=== PATIENT | female | born 2000 | race Caucasian/White ===

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

== ENCOUNTER 2020-03-09 21:07 | Emergency (ER) | payer OTHER ==
[2020-03-09] MEDS ORDERED: SODIUM CHLORIDE 1,000 ML IV STA (21:14)
--- NOTE | 2020-03-09 21:14 | PDOC ---
Rapid Medical Evaluation Chief Complaint: Lightheaded Time Seen by Provider: 03/09/20 21:12 Medical Evaluation: Allergies Allergy/AdvReac Type Severity Reaction Status Date / Time amoxicillin Allergy Verified 10/09/19 11:25 apple Allergy Verified 10/09/19 11:25 03/09/20 21:12 I have performed a brief in-person evaluation of this patient. CC: dizzy after drinking roxi. Took xanax 03/08. PE: No focal findings Orders: ekg, labs, IVF, urine Patient to proceed to ED for Further evaluation. Discharge Disposition - Diagnosis Dizziness - Referrals - Patient Instructions - Post Discharge Activity
[2020-03-09 21:15] VITALS: BP 110/54; PULSE 92; TEMP 98; BMI 22.8
[2020-03-09] MEDS ORDERED: FAMOTIDINE 10 MG TABLET PO ONE (22:06)
[2020-03-09] MEDS ORDERED: ONDANSETRON 4 MG TABLET PO ONE (22:06)
[2020-03-09] MEDS ORDERED: FAMOTIDINE 20 MG TABLET ONE (22:07)
[2020-03-09] MEDS ORDERED: ONDANSETRON *ODT* 4 MG TABLET ONE (22:08)
--- NOTE | 2020-03-09 22:10 | PDOC ---
Documentation entered by Any Chow SCRIBE, acting as scribe for Giovanna Euceda MD. Giovanna Euceda MD: This documentation has been prepared by the Claudine wiseman Brenda, SCRIBE, under my direction and personally reviewed by me in its entirety. I confirm that the documentation accurately reflects all work, treatment, procedures, and medical decision making performed by me. History of Present Illness - General Chief Complaint: Lightheaded Stated Complaint: DIZZINESS Time Seen by Provider: 03/09/20 21:12 History Source: Patient Exam Limitations: No Limitations - History of Present Illness Initial Comments: 03/09/20 22:07 19yoF presnets w/ malaise, nausea, weakness, lower pelvic cramping, first day of menstrual cycle. Pt states that she typically feels this way on first day of period. Pt states all of her symptoms today are the same as a typical menstrual cycle without concerning change. She is concerned because last night she took 1 tab of her friend's xanax to help her sleep and today her period started. Past History - Medical History Allergies/Adverse Reactions: Allergies Allergy/AdvReac Type Severity Reaction Status Date / Time amoxicillin Allergy Verified 03/09/20 21:15 apple Allergy Verified 03/09/20 21:15 Home Medications: Ambulatory Orders Ipratropium [place] 2 spray NS BID PRN #1 spray 08/11/19 Methylprednisolone [Medrol Dose Heri] 4 mg PO ASDIR #21 tablet 08/11/19 Oseltamivir Phosphate [Tamiflu -] 75 mg PO BID #10 capsule 08/11/19 Asthma: Yes COPD: No Psychiatric Problems: Yes (bipolar and depression) - Immunization History Immunization Up to Date: Yes - Psycho-Social/Smoking History Smoking History: Current every day smoker Have you smoked in the past 12 months: No Number of Cigarettes Smoked Daily: 1 Information on smoking cessation initiated: No - Substance Abuse Hx (Audit-C & DAST Scrn) How often the patient has a drink containing alcohol: Monthly or less Score: In Men: 4 or > Positive; In Women: 3 or > Positive: 1 Screen Result (Pos requires Nsg. Audit-10AR): Negative *Physical Exam - Vital Signs Last Vital Signs Temp Pulse Resp BP Pulse Ox 98 F 92 H 18 110/54 L 98 03/09/20 21:12 03/09/20 21:12 03/09/20 21:12 03/09/20 21:12 03/09/20 21:12 - Physical Exam 03/09/20 22:08 NAD, well appearing rrr ctabl soft ntnd gait, balance, speech WNL A&O x 3 Medical Decision Making - Medical Decision Making 03/09/20 22:08 19yoF w/ typical menstral period. - abebe/GUNJAN samuel. Discharge - Discharge Information Problems reviewed: Yes Clinical Impression/Diagnosis: Dizziness Condition: Good Disposition: HOME - Admission No - Follow up/Referral - Patient Discharge Instructions Additional Instructions: Avoid taking other people's medications or buy pills off of the street. Usual care for your perod - drink plenty of fluids, ibuprofen for aches/pains, rest. - Post Discharge Activity
== END 2020-03-09 22:18 | disposition home or self-care (01) ==
LOC: JER 21:07
PROC: 3E0337Z Introduction of Electrolytic and Water Balance Substance into Peripheral Vein, Percutaneous Approach (ICD-10-PCS; principal; 2020-03-09)
DX: R42 Dizziness and giddiness (principal)
CPT/HCPCS: 99284-25

== ENCOUNTER 2020-09-10 19:14 | Emergency (ER) | payer OTHER ==
[2020-09-10 19:35] VITALS: BP 121/71; PULSE 89; TEMP 98.4; BMI 23.2
[2020-09-10] MEDS ORDERED: ALBUTEROL SO4 2.5/IPRATROPIUM 0.5 INH SOL 3 ML VIAL.NEB. NEB ONE ×3 (19:52→19:59)
[2020-09-10] MEDS ORDERED: DEXAMETHASONE LIQUID 0.5 MG/5 ML PO ONE (19:55)
[2020-09-10] MEDS ORDERED: DEXAMETHASONE SOD PHOSPHATE 10 MG/1 ML VIAL ONE (20:00)
== END 2020-09-10 20:59 | disposition home or self-care (01) ==
LOC: JER 19:14 → JERFT 19:14
PROC: 3E0F7GC Introduction of Other Therapeutic Substance into Respiratory Tract, Via Natural or Artificial Opening (ICD-10-PCS; principal; 2020-09-10)
DX: J45.901 Unspecified asthma with (acute) exacerbation (principal); Z11.52 Encounter for screening for COVID-19
CPT/HCPCS: 99283-25; C9803; U0003

== ENCOUNTER 2021-04-14 10:38 | Emergency (ER) | payer OTHER ==
[2021-04-14 10:59] VITALS: BP 112/69; PULSE 80; TEMP 97.9; BMI 25.3
[2021-04-14] MEDS ORDERED: ERYTHROMYCIN 0.5% OPHTHALMIC OINTMENT 3.5 GM TUBE OU ONE (11:34)
[2021-04-14] MEDS ORDERED: ERYTHROMYCIN 0.5% OPHTHALMIC OINTMENT 3.5 GM TUBE ONE (11:34)
== END 2021-04-14 11:47 | disposition home or self-care (01) ==
LOC: JERFT 10:38
DX: H10.33 Unspecified acute conjunctivitis, bilateral (principal)
CPT/HCPCS: 99283-25

== ENCOUNTER 2021-05-25 10:36 | Emergency (ER) | payer OTHER ==
[2021-05-25 10:55] VITALS: BP 102/59; PULSE 89; TEMP 97.9; BMI 54.0
[2021-05-25] MEDS ORDERED: ALBUTEROL SO4 2.5/IPRATROPIUM 0.5 INH SOL 3 ML VIAL.NEB. NEB ONE (11:16)
[2021-05-25] MEDS ORDERED: ALBUTEROL SO4 0.083% IH SOL 2.5 MG/3 ML VIAL.NEB. NEB ONE (11:48)
== END 2021-05-25 13:51 | disposition home or self-care (01) ==
LOC: JER 10:36
PROC: 3E0F7GC Introduction of Other Therapeutic Substance into Respiratory Tract, Via Natural or Artificial Opening (ICD-10-PCS; principal; 2021-05-25)
DX: J45.901 Unspecified asthma with (acute) exacerbation (principal); J06.9 Acute upper respiratory infection, unspecified
CPT/HCPCS: 99284-25

== ENCOUNTER 2021-09-02 02:09 | Emergency (ER) | payer OTHER ==
[2021-09-02 02:24] VITALS: BP 103/68; PULSE 108; TEMP 100; BMI 24.5
[2021-09-02] MEDS ORDERED: ACETAMINOPHEN 500 MG TABLET (FP) PO ONE (03:05)
[2021-09-02] MEDS ORDERED: ACETAMINOPHEN 325 MG TABLET (FP) ONE (03:08)
== END 2021-09-02 04:47 | disposition home or self-care (01) ==
LOC: JER 02:09
DX: R06.02 Shortness of breath (principal)
CPT/HCPCS: 87804; 87807; 93005; 93010; 99283-25; C9803; U0003; U0005

== ENCOUNTER 2022-02-07 11:06 | Emergency (ER) | payer OTHER ==
[2022-02-07 11:48] VITALS: BP 115/58; PULSE 88; TEMP 98.1; BMI 24.5
[2022-02-07] MEDS ORDERED: IBUPROFEN 600 MG TABLET (FP) PO ONE ×2 (12:26→12:30)
== END 2022-02-07 13:11 | disposition home or self-care (01) ==
LOC: JER 11:06 → JERFT 11:06
DX: J45.20 Mild intermittent asthma, uncomplicated (principal); J30.9 Allergic rhinitis, unspecified
CPT/HCPCS: 0241U-QW; 93005; 93010; 99283-25

== ENCOUNTER 2022-05-02 14:48 | Emergency (ER) | payer OTHER ==
[2022-05-02 14:58] VITALS: BP 98/66; PULSE 91; RESP 18; TEMP 98.2; BMI 22.6
[2022-05-02] MEDS ORDERED: KETOROLAC TROMETHAMINE 30 MG/1 ML VIAL IM ONE (15:28)
[2022-05-02] MEDS ORDERED: KETOROLAC TROMETHAMINE 30 MG/1 ML VIAL ONE (15:37)
== END 2022-05-02 15:57 | disposition home or self-care (01) ==
LOC: JERFT 14:48 → JER 14:48 → JERFT 15:57
PROC: 3E0233Z Introduction of Anti-inflammatory into Muscle, Percutaneous Approach (ICD-10-PCS; principal; 2022-05-02)
DX: L02.31 Cutaneous abscess of buttock (principal)
CPT/HCPCS: 99284-25

== ENCOUNTER 2022-12-22 09:38 | Emergency (ER) | payer OTHER ==
[2022-12-22 09:44] VITALS: BP 106/62; PULSE 80; RESP 20; TEMP 98; BMI 22.4
[2022-12-22] MEDS ORDERED: ALBUTEROL SO4 2.5/IPRATROPIUM 0.5 INH SOL 3 ML VIAL.NEB. NEB ONE ×2 (09:55→10:04)
== END 2022-12-22 10:51 | disposition home or self-care (01) ==
LOC: JERFT 09:38
PROC: 3E0F7GC Introduction of Other Therapeutic Substance into Respiratory Tract, Via Natural or Artificial Opening (ICD-10-PCS; principal; 2022-12-22)
DX: J45.21 Mild intermittent asthma with (acute) exacerbation (principal)
CPT/HCPCS: 71046-TC-FY; 99284-25

== ENCOUNTER 2023-06-04 15:00 | Emergency (ER) | payer OTHER ==
[2023-06-04 15:32] VITALS: BP 104/64; PULSE 71; RESP 16; TEMP 98.2; BMI 23.2
[2023-06-04] MEDS ORDERED: DIPHTH,PERTUSS(ACELL),TET 0.5 ML DISP.SYRIN IM ONE ×2 (17:02→17:05)
== END 2023-06-04 17:11 | disposition home or self-care (01) ==
LOC: JERFT 15:00 → JER 15:00 → JERFT 17:11
PROC: 0JC Subcutaneous Tissue and Fascia, Extirpation (ICD-10-PCS; principal; 2023-06-04)
PROC: 3E0234Z Introduction of Serum, Toxoid and Vaccine into Muscle, Percutaneous Approach (ICD-10-PCS; 2023-06-04)
DX: S30.850A Superficial foreign body of lower back and pelvis, initial encounter (principal); L03.818 Cellulitis of other sites; X58.XXXA Exposure to other specified factors, initial encounter
CPT/HCPCS: 10120-25; 90471; 90715; 99283-25

== ENCOUNTER 2023-06-13 14:34 | Emergency (ER) | payer OTHER ==
[2023-06-13 14:40] VITALS: BP 111/58; PULSE 92; RESP 17; TEMP 98.2; BMI 22.6
== END 2023-06-13 15:11 | disposition home or self-care (01) ==
LOC: JERFT 14:34
DX: Z48.02 Encounter for removal of sutures (principal)
CPT/HCPCS: 99282-25

== ENCOUNTER 2023-08-17 17:35 | Emergency (ER) | payer OTHER ==
[2023-08-17 17:54] VITALS: BP 104/58; PULSE 79; RESP 18; TEMP 98.4; BMI 22.3
== END 2023-08-17 19:55 | disposition home or self-care (01) ==
LOC: JERFT 17:35
DX: Z20.2 Contact with and (suspected) exposure to infections with a predominantly sexual mode of transmission (principal)
CPT/HCPCS: 87110; 99283-25

== ENCOUNTER 2023-10-12 17:09 | Emergency (ER) | payer OTHER ==
[2023-10-12 17:23] VITALS: BMI 23.6
[2023-10-12] MEDS ORDERED: ACETAMINOPHEN INJECTION 100 ML IVPB ONE (17:59)
[2023-10-12] MEDS ORDERED: KETOROLAC TROMETHAMINE 30 MG/1 ML VIAL ONE (18:00)
[2023-10-12] MEDS ORDERED: ONDANSETRON 4 MG/2 ML VIAL ONE ×2 (18:00→20:11)
[2023-10-12] MEDS: KETOROLAC TROMETHAMINE 30 MG/1 ML VIAL IVPUSH ONE (18:10)
[2023-10-12] MEDS: ONDANSETRON 4 MG/2 ML VIAL IVPUSH ONE ×2 (18:10→20:14)
[2023-10-12] MEDS: SODIUM CHLORIDE 0.9% 500 ML INFUS.BAG IV ONE (18:15)
[2023-10-12] MEDS: ACETAMINOPHEN 1000 MG/100 ML BAG IVPB ONE (18:15)
[2023-10-12 18:26] LABS: BASO % 0.2 % (0-2.0); HEMOGLOBIN 13.6 GM/dL (10.7-15.3); LYMPH % 6.3 % (8-40); MCH 31.4 pg (25.7-33.7); MCHC 33.3 g/dl (32.0-36.0); MEAN CELL VOLUME 94.4 fl (80-96); MEAN PLT VOLUME 7.9 fl (7.5-11.1); MONO % 6.8 % (3.8-10.2); NEUT % 86.7 % (42.8-82.8); PLATELET COUNT 284 10^3/uL (134-434); RBC 4.34 M/mm3 (3.60-5.2); RDW 12.8 % (11.6-15.6); WHITE BLOOD COUNT 15.1 K/mm3 (4.0-10.0)
[2023-10-12 18:45] LABS: CALCIUM 10.4 mg/dL (8.5-10.1)
[2023-10-12 18:46] LABS: ALBUMIN 4.4 g/dl (3.4-5.0)
[2023-10-12 18:49] LABS: CREATININE 0.7 mg/dL (0.55-1.3)
[2023-10-12 18:51] LABS: BILIRUBIN,TOTAL 1.1 mg/dL (0.2-1); TOT PROT 7.8 g/dl (6.4-8.2)
[2023-10-12 20:44] LABS: EPI CELLS >36 /uL (0-25.1); HYALINE CASTS 3 /uL (0-3.1); PH,URINE 5.5 (5.0-8.0); URINE APPEARANCE CLOUDY; URINE BACTERIA 707 /uL (0-1359); URINE BILIRUBIN NEGATIVE (NEGATIVE); URINE COLOR ORANGE; URINE GLUCOSE (UA) NEGATIVE (NEGATIVE); URINE KETONE 2+ (NEGATIVE); URINE LEUK ESTERASE 1+ (NEGATIVE); URINE NITRITE NEGATIVE (NEGATIVE); URINE PROTEIN 1+ (NEGATIVE); URINE UROBILINOGEN 0.2 mg/dL (0.2-1.0); URINE WBC 396 /uL (0-25.8)
[2023-10-12] MEDS ORDERED: NITROFURANTOIN MACROCRYSTAL 50 MG CAPSULE (FP) ONE (21:08)
[2023-10-12] MEDS: NITROFURANTOIN MONOHYD/M-CRYST 100 MG CAPSULE PO ONE (21:15)
[2023-10-12 21:19] VITALS: BP 114/72; PULSE 63; RESP 18; TEMP 98.1
[2023-10-12 22:43] LABS: URINE RBC 817.6 /uL (0-23.9)
== END 2023-10-12 21:20 | disposition home or self-care (01) ==
LOC: JER 17:09
PROC: 3E033NZ Introduction of Analgesics, Hypnotics, Sedatives into Peripheral Vein, Percutaneous Approach (ICD-10-PCS; principal; 2023-10-12)
PROC: 3E0333Z Introduction of Anti-inflammatory into Peripheral Vein, Percutaneous Approach (ICD-10-PCS; 2023-10-12)
PROC: 3E033GC Introduction of Other Therapeutic Substance into Peripheral Vein, Percutaneous Approach (ICD-10-PCS; 2023-10-12)
PROC: 3E033GC Introduction of Other Therapeutic Substance into Peripheral Vein, Percutaneous Approach (ICD-10-PCS; 2023-10-12)
DX: N92.0 Excessive and frequent menstruation with regular cycle (principal); N39.0 Urinary tract infection, site not specified; R11.2 Nausea with vomiting, unspecified; R42 Dizziness and giddiness; R10.30 Lower abdominal pain, unspecified
CPT/HCPCS: 36415; 76830-TC; 80053; 81003; 83690; 84703; 85025; 87086; 99284-25; J0131

== ENCOUNTER 2024-04-11 16:12 | Emergency (ER) | payer OTHER ==
[2024-04-11 16:19] VITALS: BP 120/75; PULSE 93; RESP 20; TEMP 98.4; BMI 23.0
[2024-04-11] MEDS ORDERED: DIPHTH,PERTUSS(ACELL),TET 0.5 ML DISP.SYRIN IM ONE (17:10)
[2024-04-11] MEDS ORDERED: BACITRACIN ZINC 15 GM TUBE TOPICAL OINTMENT ONE (17:10)
[2024-04-11] MEDS ORDERED: IBUPROFEN 600 MG TABLET (FP) PO ONE (17:10)
[2024-04-11] MEDS ORDERED: AZITHROMYCIN 500 MG TABLET ONE (17:10)
[2024-04-11] MEDS: AZITHROMYCIN 250 MG TABLET PO ONE (17:11)
[2024-04-11] MEDS: BACITRACIN ZINC 15 GM TUBE TOPICAL OINTMENT TP ONE (17:11)
[2024-04-11] MEDS: IBUPROFEN 600 MG TABLET (FP) PO ONE (17:11)
[2024-04-11] MEDS: DIPHTH,PERTUSS(ACELL),TET 0.5 ML DISP.SYRIN IM ONE (17:11)
[2024-04-11] MEDS ORDERED: RABIES VACCINE (PCEC)/PF 2.5 UNIT/VIAL IM ONE (17:29)
[2024-04-11] MEDS ORDERED: RABIES IMMUNE GLOBULIN 300 UNITS/1 ML VIAL ONE (17:29)
[2024-04-11] MEDS ORDERED: SULFAMETHOXAZOLE/TRIMETHOPRIM 800MG/160MG D.S. TABLET ONE (18:00)
[2024-04-11] MEDS ORDERED: metroNIDAZOLE 250 MG TABLET ONE (18:00)
[2024-04-11] MEDS: metroNIDAZOLE 500 MG TABLET PO ONE (18:05)
[2024-04-11] MEDS: SULFAMETHOXAZOLE/TRIMETHOPRIM 800MG/160MG D.S. TABLET PO ONE (18:05)
[2024-04-11] MEDS: RABIES VACCINE (PCEC)/PF 2.5 UNIT/VIAL IM ONE (18:05)
[2024-04-11] MEDS: RABIES IMMUNE GLOBULIN 300 UNITS/1 ML VIAL IM ONE (18:06)
== END 2024-04-11 18:23 | disposition home or self-care (01) ==
LOC: JERFT 16:12
PROC: 3E02305 Introduction of Other Antineoplastic into Muscle, Percutaneous Approach (ICD-10-PCS; principal; 2024-04-11)
PROC: 3E0234Z Introduction of Serum, Toxoid and Vaccine into Muscle, Percutaneous Approach (ICD-10-PCS; 2024-04-11)
PROC: 3E0234Z Introduction of Serum, Toxoid and Vaccine into Muscle, Percutaneous Approach (ICD-10-PCS; 2024-04-11)
DX: S80.812A Abrasion, left lower leg, initial encounter (principal); S61.451A Open bite of right hand, initial encounter; W55.01XA Bitten by cat, initial encounter; Z23 Encounter for immunization
CPT/HCPCS: 90375; 90471; 90675; 90715; 96372; 99284-25

== ENCOUNTER 2024-04-14 18:00 | Emergency (ER) | payer OTHER ==
[2024-04-14 18:25] VITALS: BP 100/67; PULSE 77; RESP 18; TEMP 98.8; BMI 23.2
[2024-04-14] MEDS ORDERED: RABIES VACCINE (PCEC)/PF 2.5 UNIT/VIAL IM ONE (19:16)
[2024-04-14] MEDS: RABIES VACCINE (PCEC)/PF 2.5 UNIT/VIAL IM ONE (19:21)
[2024-04-15 16:57] LABS: HIV INTERPRETATION NEGATIVE (NEGATIVE)
== END 2024-04-14 19:31 | disposition home or self-care (01) ==
LOC: JERFT 18:00
PROC: 3E0234Z Introduction of Serum, Toxoid and Vaccine into Muscle, Percutaneous Approach (ICD-10-PCS; principal; 2024-04-14)
DX: Z29.14 Encounter for prophylactic rabies immune globulin (principal)
CPT/HCPCS: 36415; 86803; 87389; 90675; 99281-25

== ENCOUNTER 2024-04-18 01:29 | Emergency (ER) | payer OTHER ==
[2024-04-18 01:34] VITALS: BP 111/60; PULSE 82; RESP 18; TEMP 98.6; BMI 23.3
[2024-04-18] MEDS ORDERED: DEXAMETHASONE 4 MG TABLET (FP) ONE (03:31)
[2024-04-18] MEDS ORDERED: diphenhydrAMINE HCL 25 MG CAPSULE (FP) PO ONE (03:31)
[2024-04-18] MEDS: diphenhydrAMINE HCL 25 MG CAPSULE (FP) PO ONE (03:33)
[2024-04-18] MEDS: DEXAMETHASONE 4 MG TABLET (FP) PO ONE (03:33)
[2024-04-18] MEDS ORDERED: FAMOTIDINE 20 MG TABLET ONE (03:33)
[2024-04-18] MEDS: FAMOTIDINE 20 MG TABLET PO ONE (03:34)
== END 2024-04-18 03:35 | disposition home or self-care (01) ==
LOC: JER 01:29
DX: L50.0 Allergic urticaria (principal)
CPT/HCPCS: 99283-25

== ENCOUNTER 2024-04-21 16:04 | Emergency (ER) | payer OTHER ==
[2024-04-21 16:09] VITALS: BP 109/60; PULSE 73; RESP 18; TEMP 98.2; BMI 23.3
[2024-04-21] MEDS ORDERED: RABIES VACCINE (PCEC)/PF 2.5 UNIT/VIAL IM ONE (16:38)
[2024-04-21] MEDS: RABIES VACCINE (PCEC)/PF 2.5 UNIT/VIAL IM ONE (16:44)
== END 2024-04-21 17:03 | disposition home or self-care (01) ==
LOC: JERFT 16:04
PROC: 3E0234Z Introduction of Serum, Toxoid and Vaccine into Muscle, Percutaneous Approach (ICD-10-PCS; principal; 2024-04-21)
DX: Z29.14 Encounter for prophylactic rabies immune globulin (principal)
CPT/HCPCS: 90471; 90675; 96375; 99281-25

== ENCOUNTER 2024-06-16 20:48 | Emergency (ER) | payer OTHER ==
[2024-06-16 21:00] VITALS: BP 100/62; PULSE 54; RESP 16; TEMP 97.7; BMI 23.8
[2024-06-16] MEDS ORDERED: ONDANSETRON 4 MG/2 ML VIAL ONE (21:38)
[2024-06-16 21:42] LABS: BASO % 0.2 % (0-2.0); HEMATOCRIT 41.3 % (32.4-45.2); HEMOGLOBIN 13.9 GM/dL (10.7-15.3); LYMPH % 4.4 % (8-40); MCH 31.6 pg (25.7-33.7); MCHC 33.6 g/dl (32.0-36.0); MEAN PLT VOLUME 7.3 fl (7.5-11.1); MONO % 7.2 % (3.8-10.2); NEUT % 88.2 % (42.8-82.8); PLATELET COUNT 317 10^3/uL (134-434); RBC 4.39 M/mm3 (3.60-5.2); RDW 12.8 % (11.6-15.6); WHITE BLOOD COUNT 16.7 K/mm3 (4.0-10.0)
[2024-06-16] MEDS: SODIUM CHLORIDE 1,000 ML IV STA ×2 (22:03→23:11)
[2024-06-16] MEDS: ONDANSETRON 4 MG/2 ML VIAL IVPUSH ONE (22:03)
[2024-06-16] MEDS ORDERED: ACETAMINOPHEN INJECTION 100 ML ONE (22:12)
[2024-06-16] MEDS: ACETAMINOPHEN 1000 MG/100 ML BAG IVPB ONE (22:17)
[2024-06-16 22:19] LABS: POTASSIUM 4.4 mmol/L (3.5-5.1)
[2024-06-16 22:21] LABS: ALBUMIN 4.6 g/dl (3.4-5.0); BLOOD UREA NITROGEN 15.3 mg/dL (7-18); CALCIUM 10.1 mg/dL (8.5-10.1)
[2024-06-16 22:25] LABS: CREATININE 0.9 mg/dL (0.55-1.3)
[2024-06-16 22:26] LABS: BILIRUBIN,TOTAL 1.1 mg/dL (0.2-1); TOT PROT 7.8 g/dl (6.4-8.2)
[2024-06-16 22:50] LABS: HCG,QUALITATIVE URINE Negative
[2024-06-16 22:53] LABS: EPI CELLS 24 /uL (0-25.1); HYALINE CASTS 1 /uL (0-3.1); URINE APPEARANCE CLEAR; URINE BACTERIA 168 /uL (0-1359); URINE BILIRUBIN NEGATIVE (NEGATIVE); URINE COLOR YELLOW; URINE GLUCOSE (UA) NEGATIVE (NEGATIVE); URINE KETONE 3+ (NEGATIVE); URINE LEUK ESTERASE NEGATIVE (NEGATIVE); URINE NITRITE NEGATIVE (NEGATIVE); URINE PROTEIN TRACE (NEGATIVE); URINE RBC 17 /uL (0-23.9); URINE UROBILINOGEN 0.2 mg/dL (0.2-1.0); URINE WBC 9 /uL (0-25.8)
[2024-06-16 23:20] LABS: HIV INTERPRETATION NEGATIVE (NEGATIVE)
== END 2024-06-17 02:48 | disposition home or self-care (01) ==
LOC: JER 20:48
PROC: 3E033NZ Introduction of Analgesics, Hypnotics, Sedatives into Peripheral Vein, Percutaneous Approach (ICD-10-PCS; principal; 2024-06-16)
PROC: 3E033GC Introduction of Other Therapeutic Substance into Peripheral Vein, Percutaneous Approach (ICD-10-PCS; 2024-06-16)
PROC: 3E0337Z Introduction of Electrolytic and Water Balance Substance into Peripheral Vein, Percutaneous Approach (ICD-10-PCS; 2024-06-16)
PROC: 3E0337Z Introduction of Electrolytic and Water Balance Substance into Peripheral Vein, Percutaneous Approach (ICD-10-PCS; 2024-06-16)
DX: K52.9 Noninfective gastroenteritis and colitis, unspecified (principal); R11.2 Nausea with vomiting, unspecified; R10.32 Left lower quadrant pain; Z20.822 Contact with and (suspected) exposure to COVID-19
CPT/HCPCS: 0241U-QW; 36415; 74177-TC; 80053; 81003; 84703; 85025; 86803; 87086; 87389; 93005; 93010; 99285-25; J0131

== ENCOUNTER 2025-04-04 11:37 | Emergency (ER) | payer OTHER ==
[2025-04-04 11:41] VITALS: RESP 18; BMI 23.0
[2025-04-04] MEDS: ONDANSETRON *ODT* 4 MG TABLET SL ONE (12:17)
[2025-04-04] MEDS: ONDANSETRON 4 MG/2 ML VIAL IVPUSH ONE (12:20)
[2025-04-04] MEDS ORDERED: HALOPERIDOL LACTATE 5 MG/ML ONE (12:34)
[2025-04-04] MEDS ORDERED: MAG HYDROX/AL HYDROX/SIMETH 30 ML UNIT-DOSE CUP ONE (12:34)
[2025-04-04] MEDS ORDERED: FAMOTIDINE 20 MG/50 ML IVPB 20 MG/50 ML MG IVPB ONE (12:34)
[2025-04-04 12:41] LABS: ABSOLUTE IMMATURE GRANULOCYTES 0.08 x10^3/uL (0.0-0.031); BASOPHILS # 0.02 x10^3/uL (0.01-0.08); EOSINOPHIL % 0.1 % (0.7-5.8); EOSINOPHILS # 0.01 x10^3/uL (0.04-0.36); MCHC 31.9 g/dl (32.2-35.5); MEAN CELL VOLUME 97.0 fl (79.4-94.8); MEAN PLT VOLUME 9.5 fl (9.4-12.3); MONOCYTE # 0.81 x10^3/uL (0.24-0.86); MONOCYTE % 6.0 % (4.7-12.5); RDW 12.4 % (12.1-16.5)
[2025-04-04] MEDS: FAMOTIDINE 20 MG/50 ML IVPB 20 MG/50 ML MG IVPB ONE (12:42)
[2025-04-04] MEDS: LACTATED RINGERS SOLUTION 1000 ML INFUS.BAG IV ONE (12:42)
[2025-04-04] MEDS: HALOPERIDOL LACTATE 5 MG/ML IVPUSH ONE (12:42)
[2025-04-04] MEDS: MAG HYDROX/AL HYDROX/SIMETH 30 ML UNIT-DOSE CUP PO ONE (12:56)
[2025-04-04 13:16] LABS: CO2 24.0 mmol/L (21-32); GLUCOSE,RANDOM 162.0 mg/dL (74-106)
[2025-04-04 13:19] LABS: CREATININE 0.9 mg/dL (0.55-1.3); SGOT/AST 16.0 U/L (15-37); SGPT/ALT 19.0 U/L (13-61)
[2025-04-04 13:21] LABS: TOT PROT 8.0 g/dl (6.4-8.2)
[2025-04-04 13:22] LABS: ALK PHOS 73.0 U/L (45-117)
[2025-04-04 14:09] LABS: URINE APPEARANCE CLOUDY; URINE BILIRUBIN NEGATIVE (NEGATIVE); URINE COLOR YELLOW; URINE GLUCOSE (UA) NEGATIVE (NEGATIVE); URINE KETONE 4+ (NEGATIVE); URINE LEUK ESTERASE TRACE (NEGATIVE); URINE NITRITE NEGATIVE (NEGATIVE); URINE PROTEIN 1+ (NEGATIVE); URINE UROBILINOGEN 1.0 mg/dL (0.2-1.0)
[2025-04-04 14:21] LABS: EPI CELLS 29.1 /uL (0-25.1); HYALINE CASTS 0.87 /uL (0-3.1); URINE BACTERIA 366.6 /uL (0-1359); URINE RBC 26.0 /uL (0-23.9); URINE WBC 7.5 /uL (0-25.8)
[2025-04-04 14:54] LABS: HIV INTERPRETATION NEGATIVE (NEGATIVE)
[2025-04-04 15:06] VITALS: BP 118/68; PULSE 70; TEMP 98.3
[2025-04-05 20:47] LABS: HCV DIAGNOSTIC IN-HOUSE W/RFLX NON-REACTIVE (NONREACTIVE)
== END 2025-04-04 15:05 | disposition home or self-care (01) ==
LOC: JER 11:37
PROC: 3E033GC Introduction of Other Therapeutic Substance into Peripheral Vein, Percutaneous Approach (ICD-10-PCS; principal; 2025-04-04)
PROC: 3E033GC Introduction of Other Therapeutic Substance into Peripheral Vein, Percutaneous Approach (ICD-10-PCS; 2025-04-04)
DX: R11.2 Nausea with vomiting, unspecified (principal); R68.83 Chills (without fever); R19.7 Diarrhea, unspecified; R10.30 Lower abdominal pain, unspecified
CPT/HCPCS: 36415; 80053; 81003; 83735; 84703; 85025; 86803; 87086; 87389; 93005; 93010; 99284-25

== ENCOUNTER 2025-04-29 15:02 | Emergency (ER) | payer OTHER ==
[2025-04-29 15:12] VITALS: TEMP 98.2; BMI 25.2
[2025-04-29] MEDS ORDERED: FAMOTIDINE 20 MG/50 ML IVPB 20 MG/50 ML MG IVPB ONE (17:08)
[2025-04-29] MEDS ORDERED: ONDANSETRON 4 MG/2 ML VIAL ONE (17:08)
[2025-04-29] MEDS ORDERED: ACETAMINOPHEN INJECTION 100 ML ONE (17:08)
[2025-04-29] MEDS: SODIUM CHLORIDE 0.9% 500 ML INFUS.BAG IV ONE ×2 (17:15→19:55)
[2025-04-29] MEDS: ACETAMINOPHEN 1000 MG/100 ML BAG IVPB ONE (17:15)
[2025-04-29] MEDS: FAMOTIDINE 20 MG/50 ML IVPB 20 MG/50 ML MG IVPB ONE (17:16)
[2025-04-29] MEDS: ONDANSETRON 4 MG/2 ML VIAL IVPUSH ONE (17:16)
[2025-04-29 17:27] LABS: ABSOLUTE IMMATURE GRANULOCYTES 0.04 x10^3/uL (0.0-0.031); BASOPHILS # 0.03 x10^3/uL (0.01-0.08); EOSINOPHIL % 0.4 % (0.7-5.8); EOSINOPHILS # 0.04 x10^3/uL (0.04-0.36); MCHC 33.0 g/dl (32.2-35.5); MEAN CELL VOLUME 95.0 fl (79.4-94.8); MEAN PLT VOLUME 9.3 fl (9.4-12.3); MONOCYTE # 0.89 x10^3/uL (0.24-0.86); MONOCYTE % 8.6 % (4.7-12.5); RDW 11.9 % (12.1-16.5)
[2025-04-29 17:30] LABS: EPI CELLS >36 /uL (0-25.1); HYALINE CASTS 10 /uL (0-3.1); URINE APPEARANCE CLOUDY; URINE BACTERIA 2313 /uL (0-1359); URINE BILIRUBIN 1+ (NEGATIVE); URINE COLOR ORANGE; URINE GLUCOSE (UA) NEGATIVE (NEGATIVE); URINE KETONE TRACE (NEGATIVE); URINE LEUK ESTERASE 2+ (NEGATIVE); URINE NITRITE NEGATIVE (NEGATIVE); URINE PROTEIN 2+ (NEGATIVE); URINE RBC 192 /uL (0-23.9); URINE UROBILINOGEN 1.0 mg/dL (0.2-1.0); URINE WBC 459 /uL (0-25.8)
[2025-04-29 17:47] LABS: GLUCOSE,RANDOM 102.0 mg/dL (74-106)
[2025-04-29 17:48] LABS: TOT PROT 8.7 g/dl (6.4-8.2)
[2025-04-29 17:49] LABS: CO2 24.0 mmol/L (21-32)
[2025-04-29 17:51] LABS: ALK PHOS 75.0 U/L (40-150)
[2025-04-29 17:53] LABS: SGOT/AST 24.0 U/L (5-34); SGPT/ALT 16.0 U/L (0-55)
[2025-04-29 17:54] LABS: CREATININE 0.82 mg/dL (0.55-1.3)
[2025-04-29 18:15] LABS: HCV DIAGNOSTIC IN-HOUSE W/RFLX NON-REACTIVE (NONREACTIVE); HIV INTERPRETATION NEGATIVE (NEGATIVE)
[2025-04-29] MEDS: METOCLOPRAMIDE HCL INJECTION 10 MG/2 ML VIAL IVPB ONE (19:56)
[2025-04-29 22:33] VITALS: BP 117/69; PULSE 58; RESP 16
== END 2025-04-29 22:49 | disposition home or self-care (01) ==
LOC: JER 15:02
PROC: 3E033GC Introduction of Other Therapeutic Substance into Peripheral Vein, Percutaneous Approach (ICD-10-PCS; principal; 2025-04-29)
PROC: 3E033GC Introduction of Other Therapeutic Substance into Peripheral Vein, Percutaneous Approach (ICD-10-PCS; 2025-04-29)
PROC: 3E033NZ Introduction of Analgesics, Hypnotics, Sedatives into Peripheral Vein, Percutaneous Approach (ICD-10-PCS; 2025-04-29)
DX: R11.2 Nausea with vomiting, unspecified (principal); R10.11 Right upper quadrant pain; R10.13 Epigastric pain; R19.7 Diarrhea, unspecified
CPT/HCPCS: 36415; 76705-TC; 80053; 81003; 83690; 84703; 85025; 86803; 87086; 87389